=== PATIENT | male | born 1985 | race Caucasian/White ===

== ENCOUNTER 2016-10-25 22:55 | Emergency (ER) | payer OTHER ==
[~2016-10-25] VITALS: Ht 177.8 cm; Wt 86.5 kg
[2016-10-25 23:00] VITALS: Ht 177.8 cm; Wt 86.5 kg
[2016-10-25] MEDS ORDERED: CLOT30CR24 TOP (23:28)
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
[2016-10-25] MEDS ORDERED: CEFTRIAXONE 250 MG INJ IM ONE (23:30)
[2016-10-25] MEDS ORDERED: AZITHROMYCIN 250 MG TAB PO ONE (23:30)
[2016-10-25] MEDS ORDERED: LIDOCAINE 1% (MDV) 20 ML INJ SC ONE (23:30)
[2016-10-26 00:17] LABS: URINE BLOOD (Dip) POC Negative (NEGATIVE)
== END 2016-10-26 00:58 | disposition home or self-care (01) ==
LOC: FTE 22:55
DX: N48.1 Balanitis (principal); Z11.3 Encounter for screening for infections with a predominantly sexual mode of transmission
CPT/HCPCS: 81003; 87591; 96372; J0696; Z7502; Z7610